=== PATIENT | female | born 1990 | race Two or more races ===

== ENCOUNTER 2025-01-07 08:42 | Outpatient (CLI) | payer OTHER | END 2025-01-07 08:48 | disposition home or self-care (01) | LOC: PRENATAL 08:42 | PROVIDERS: ATTEND Obstetrics & Gynecology Maternal & Fetal Medicine | DX: O44.00 Complete placenta previa NOS or without hemorrhage, unspecified trimester (principal); O43.90 Unspecified placental disorder, unspecified trimester; Z3A.34 34 weeks gestation of pregnancy ==

== ENCOUNTER 2025-02-04 14:39 | Outpatient (CLI) | payer OTHER | END 2025-02-04 14:42 | disposition home or self-care (01) | LOC: PRENATAL 14:39 | PROVIDERS: ATTEND Obstetrics & Gynecology Maternal & Fetal Medicine | DX: O26.849 Uterine size-date discrepancy, unspecified trimester (principal); O36.8130 Decreased fetal movements, third trimester, not applicable or unspecified; O43.90 Unspecified placental disorder, unspecified trimester; Z3A.28 28 weeks gestation of pregnancy ==

== ENCOUNTER 2025-03-16 13:16 | Outpatient (CLI) | payer OTHER | END 2025-03-16 13:17 | disposition home or self-care (01) | LOC: PRENATAL 13:16 | PROVIDERS: ATTEND Obstetrics & Gynecology Maternal & Fetal Medicine | DX: O26.849 Uterine size-date discrepancy, unspecified trimester (principal); O36.8130 Decreased fetal movements, third trimester, not applicable or unspecified; O43.90 Unspecified placental disorder, unspecified trimester; O99.019 Anemia complicating pregnancy, unspecified trimester; Z3A.34 34 weeks gestation of pregnancy ==